=== PATIENT | female | born 1985 | race Caucasian/White ===

== ENCOUNTER 2018-04-29 01:42 | Emergency (ER) | payer MEDICARE, MEDICAID ==
[~2018-04-29] VITALS: Ht 167.6 cm; Wt 149.7 kg
[~2018-04-29 01:42] MED LIST: ADVAIR 250-501 EACH INH; ALBUTEROL2.5 MG/0.5 INH; AMOXICILLIN 50500 MG PO; AMOXICILLIN500 M1 PO; APAP/CODEI12 MG/5 M1 PO; AUGMENTIN 875875 M1 PO; BACTRIM DS TAB1 EACH PO; BUSPAR 5 MG TABL5 M1 PO; BUSPAR30 MG PO; CLARITIN10 MG PO; CLONIDINE PO; DARVOCET-N 1001 EACH PO; DESYREL; EFFEXOR 5050 MG/1 T1 PO; EFFEXOR XR37.5 MG PO; EFFEXOR XR75 MG PO; FLEXERIL PO; GABAPENTIN 100100 MG PO; GEODON20 MG PO; GEODON40 MG PO; GEODON60 MG PO; GEODON80 MG PO; HYDROXYZINE HCL25 M1 PO; IBUPROFEN 800800 MG PO; INDERAL 20 MG T20 M1; LAMICTAL; LAMICTAL XR100 MG PO; LAMICTAL100 MG; MACROBID 100 M100 M2 PO; MEDROLDOSEPACK PO; MINIPRESS2 MG PO; MOBIC15 MG PO; NAPROSYN500 MG PO; NEURONTIN 300300 M1; NEURONTIN 400400 M1 PO; NEURONTIN600 MG PO; NORCO 5-325 TA1 EACH PO; NORFLEX100 MG PO; OMEPRAZOLE 20 M20 M1 PO; PRENATAL PO; PRILOSEC 20 MG20 MG PO; PROMETHAZINE-D120 ML PO; PROVENTIL HFA6.7 G1 INH; TESSALON200 MG PO; TRAZODONE 150150 M1; TRAZODONE 150150 M1 PO; VICODIN 5-5001 EACH PO; WELLBUTRIN 100100 M1 NG; WELLBUTRIN 100100 MG; WELLBUTRIN 100100 MG PO; ZPAK PO
[2018-04-29] MEDS ORDERED: GEODON80 MG (01:54)
[2018-04-29] MEDS ORDERED: EFFEXOR XR75 MG (01:55)
[2018-04-29] MEDS ORDERED: TRAZODONE 150150 M1 (01:55)
[2018-04-29] MEDS ORDERED: MELATONIN2.5 MG (01:56)
[2018-04-29] MEDS ORDERED: PRAZOSIN 1 MG CA1 M1 (02:05)
[2018-04-29 05:08] VITALS: BP 114/57
== END 2018-04-29 05:10 | disposition home or self-care (01) ==
LOC: M.ERS 01:42
DX: R51 Headache (principal); I10 Essential (primary) hypertension; F31.9 Bipolar disorder, unspecified; J45.909 Unspecified asthma, uncomplicated; F17.210 Nicotine dependence, cigarettes, uncomplicated; Z88.1 Allergy status to other antibiotic agents